=== PATIENT | male | born 1940 | race Caucasian/White ===

== ENCOUNTER → 2018-02-05 10:15 | Day surgery (SDC) | payer MEDICARE ==
[~2018-02-05 10:15] MED LIST: Atropine SYRINGE* 0.1 MG/ML 10 ML SYRINGE (1 MG) ONE; Heparin 2 UNITS/ML IVPREMIX* 2,000 ML IV ONE; Iohexol 350 (CONTRAST) 200 ML MDV IV ONE; Lidocaine 1%* 5 ML VIAL ONE; Midazolam* 1 MG/ML 10 ML VIAL (10 MG) ONE; NS 0.9% 1000 ML* 1,000 ML IV SCH; fentaNYL* 50 MCG/ML 2 ML VIAL (100 MCG VIAL) ONE
[2018-02-05 15:40] VITALS: BP 112/67
--- NOTE | 2018-02-06 02:20 | CATH ---
CC: Dr. Anibal Galindo; Dr. Johnny Osullivan; Dr. Noah Spear, [facility], [facility] * CARDIAC CATHETERIZATION REPORT: DATE OF PROCEDURE: 02/05/18 - [facility] CATH INDICATION FOR THE PROCEDURE: Asked by Dr. Noah Spear to perform diagnostic coronary arteriography and graft arteriography for upcoming TAVR workup. PROCEDURE: Coronary arteriography, vein graft arteriography to diagonal branch, MCFADDEN graft arteriography to the LAD. The patient was interviewed and examined in the holding area in the holding area where the risks and benefits were explained. He understood them and wished to proceed. Precardiac catheterization blood work: Hemoglobin and hematocrit 15.3 and 45 with a platelet count of 123,000. The BUN and creatinine were 18 and 0.9. INR was 1.2. Sodium 139. potassium 4.2 , chloride 105, bicarb 27. EQUIPMENT UTILIZED: 1. Right femoral artery sheath: A 5-[place] DOREEN 11 cm sheath. 2. Diagnostic coronary catheters: A 5-[place] FL4 curved right and a [place] FR4 curved left diagnostic catheter. 3. MCFADDEN graft catheter: A 5-[place] IM diagnostic catheter. HEMOSTASIS TECHNIQUE: Manual compression in light of the patient being evaluated for upcoming TAVR procedure. DESCRIPTION OF PROCEDURE: The patient was interviewed and examined in the holding area where the risks and benefits were explained. He wished to proceed. He was brought to the cardiovascular laboratory where formal time-out was performed. The right femoral artery was cannulated and the introducer was placed. Coronary arteriography was performed utilizing the 5-[place] FL4 and FR4 curved diagnostic catheter. The vein graft to the diagonal branch was cannulated utilizing the right coronary diagnostic catheter. The MCFADDEN graft was cannulated utilizing the 5-[place] MCFADDEN graft catheter. Of note following this, I personally called Dr. Spear to discuss the case with him in light of the finding of the significant lesion in the mid circumflex. It was Dr. Spear' s specific wish not for me to proceed with stenting of that artery at this point. He stated that he would address this issue in their upcoming TAVR scheduled procedure which was tentatively scheduled for next week. As such, the sheath was removed and hemostasis was obtained with local pressure. The total contrast used was 65 cc of Omnipaque dye. The radiation exposure included 7.2 minutes of fluoro time. The air kerma radiation was 643 milligray. The DAP radiation was 4099 microgray/m2. RESULTS: CORONARY ARTERIOGRAPHY: A. Left coronary artery: 1. Left main - widely patent. 2. Left anterior descending artery - a somewhat small caliber initial proximal layer totally occluded in its proximal point. 3. Circumflex artery - a nondominant vessel supplying a thin high first obtuse marginal branch/trifurcation marginal branch followed by a small caliber second obtuse marginal branch and the third obtuse marginal branch had 4 branches off of it a very thin superior branch followed by a significant 80% blockage prior to a trifurcation area supplying 2 moderate size and 1 smaller low lying posterior left ventricular branch. B. Right coronary artery - a dominant vessel supplying the PDA; 1 thin posterior left ventricular branch. There was a mild 25 to 30% mid lesion in the right coronary artery before turning on to the inferior surface of the heart and there was a distal 40 to 45% lesion seen prior to the PDA vessel. VEIN GRAFT ARTERIOGRAPHY TO THE DIAGONAL BRANCH: Widely patent with good anastomosis to a thin caliber diagonal branch with no specific focal critical stenosis seen. MCFADDEN GRAFT ARTERIOGRAPHY TO THE LEFT ANTERIOR DESCENDING ARTERY: Widely patent with good anastomosis with filling of the mid to distal LAD as it wrapped around the apical region. There was a mild 35% narrowing noted in the distal area of this artery just as it reached the apical region. The caliber of the vessel was somewhat small in caliber in mid to distal area. A retrograde filled the short distance up the LAD, but not any significant diagonal branches. Of note interestingly, the MCFADDEN graft itself had a high bifurcation point with a lateral branch to the chest wall. OVERALL ASSESSMENT: Significant [place] coronary artery disease with a totally occluded proximal LAD which was getting blood flow via a widely patent MCFADDEN graft as well as an 80 % lesion in the mid circumflex that led to a trifurcating artery that was not bypassed. Mild/ansm-qz-jtbkthad disease within the mid and distal right coronary artery as above. Patent vein graft to diagonal branch noted. This information as mentioned above was shared immediately during the case with Dr. Spear and the films were sent up to [place] via the internet for his review as well. Dr. Spear will be following up with the patient on timing of the TAVR procedure. [id number]/[facility] #: [id number] [facility]
--- NOTE | 2018-02-06 12:11 | LTR ---
CC: Dr. Anibal Galindo; Dr. Johnny Osullivan at the [facility] CORRESPONDENCE LETTER: DATE OF LETTER: 02/05/18 To: Noah Spear MD [facility]. RE: Dieter Cortes : 36 Dear Noah: This is a letter just to review my recent outpatient cardiac catheterization that I performed at your request on Marilin Shi's patient, Mr. Dieter Cortes. As you remember, you have him scheduled for a TAVR procedure because of his significant aortic stenosis and progressive exertional fatigue and dy spnea. He had undergone an exercise nuclear stress test, during which time he had a significant drop in systolic pressure with exercise, but reportedly had normal LV function and normal perfusion. I d id review the EKG of that procedure and interestingly despite he did not hit target heart rate as he exercised only to 107 beats per minute, he did have significant ST segment depressions that seemed to last throughout the course of the test. The test was converted to a Regadenoson stress test. I performed a cardiac catheterization on him to reassess his bypasses and his [place] coronary anatomy . As per my discussion on the phone from the director of labor and delivery, his MCFADDEN graft was widely patent to the LAD a s was the vein graft to the diagonal. The right coronary artery had vaky-ro-ejoiafuz disease, but th e newest finding was the presence of an 80% lesion in the mid portion of the circumflex. As per my d iscussion with you on the phone, I had called to find out if you wanted me to go ahead and place an i ntracoronary stent at that time, so as to revascularize that area and your decision was not to do at that time. As such, we completed the procedure and he was up and about and eventually sent home on h is current medications with the anticipation of having his TAVR procedure being performed next week. As always if you have any questions regarding him, please feel free to speak with me, and thank you willa concepcion for having asked me to be involved in his care. Sincerely, [id number]/[facility] #: [id number]
== END | disposition home or self-care (01) ==
LOC: CHICATH 10:15
PROVIDERS: ATTEND Internal Medicine Cardiovascular Disease
DX: I35.0 Nonrheumatic aortic (valve) stenosis (principal); I25.10 Atherosclerotic heart disease of native coronary artery without angina pectoris; I49.5 Sick sinus syndrome; E11.8 Type 2 diabetes mellitus with unspecified complications; Z79.84 Long term (current) use of oral hypoglycemic drugs; Z87.891 Personal history of nicotine dependence; Z95.0 Presence of cardiac pacemaker; Z95.1 Presence of aortocoronary bypass graft; I10 Essential (primary) hypertension; E78.5 Hyperlipidemia, unspecified
CPT/HCPCS: 93455; C1887; J0461; J1644; J2250; J3010

== ENCOUNTER 2018-02-15 10:34 | Emergency (ER) | payer MEDICARE ==
--- NOTE | 2018-02-15 11:48 | ED ---
Complex/Multi-Sys Presentation - HPI Summary HPI Summary: This is xeniaibe Vianey Landa documenting for attending Concepcion Platt MD This patient is a 77 year old M presenting to [facility] accompanied by his Lisa with a chief complaint of a lump in the right groin area at the location of bilateral PCI placement on 02/12/18 at [facility], where he had a stent and valve replacement (TAVR). Patient noticed the lump this morning, and was instructed by Dr. Osullivan to come to the ED due to its size. Pain is 3/10 in severity, upon triage. Patient denies drainage of blood or pus, lower extremity pain, urinary symptoms, headache, dizziness, CP, SOB, and fever I, Dr. Platt ,personally performed the services described in this documentation as scribed in my presence and it is both accurate and complete - History Of Current Complaint Chief Complaint: EDGeneral Hx Obtained From: Patient Onset/Duration: Gradual Onset, Lasting Hours Timing: Constant Severity Currently: Mild Severity Initially: Mild Location: Pain At: - right groin Character: Pressure - "lump" Aggravating Factor(s): nothing Alleviating Factor(s): nothing Associated Signs And Symptoms: Negative: Dizziness, Headache, SOB, Chest Pain, Dysuria, Fever Related History: Recent Hospitalization - cardiac cath bilat, cath x 2 on the right within a few days. - Allergies/Home Medications Allergies/Adverse Reactions: Allergies Allergy/AdvReac Type Severity Reaction Status Date / Time simvastatin Allergy Diarrhea Verified 02/15/18 10:52 PMH/Surg Hx/FS Hx/Imm Hx Endocrine/Hematology History: Reports: Hx Diabetes Cardiovascular History: Reports: Hx Angina, Hx Coronary Artery Disease, Hx Hypercholesterolemia, Hx Hypertension Respiratory History: Reports: Hx Pneumonia - Surgical History Surgery Procedure, Year, and Place: stent and valve replacement[facility] Infectious Disease History: No Infectious Disease History: Denies: Traveled Outside the [place] in Last 30 Days - Family History Known Family History: Positive: Other - father - ALS - Social History Occupation: Retired Lives: With Family Alcohol Use: Daily Alcohol Amount: 1 beer with supper Substance Use Type: Reports: None Smoking Status (MU): Never Smoked Tobacco Have You Smoked in the Last Year: No Review of Systems Negative: Fever Negative: Chest Pain Negative: Shortness Of Breath Genitourinary: Other - lump to R groin Positive: no symptoms reported Negative: Myalgia Positive: Bruising - bilateral groins Neurological: Negative - dizziness Negative: Headache Psychological: Normal All Other Systems Reviewed And Are Negative: Yes Physical Exam - Summary Physical Exam Summary: Appearance: Well-appearing, minimal pain distress on palpation of right groin, well-nourished Skin: Warm, color reflects adequate perfusion, dry; purple and green ecchymosis bilateral groin; right groin with palpable 3cm induration; L groin palpable 1cm induration Head: Normal Head/Face inspection, atraumatic Eyes: Conjunctiva clear ENT: Normal inspection Neck: Supple, no nodes, no JVD Respiratory: Lungs clear, normal breath sounds, no respiratory distress Cardio: RRR, No murmur, pulses normal, brisk capillary refill Abdomen: Soft, nontender Bowel sounds: Present Musculoskeletal: femoral and distal pulses intact bilaterally, Strength Intact/ ROM intact, no calf tenderness, no edema. Psychological: Normal Neuro: Alert, muscle tone normal, no focal deficit Triage Information Reviewed: Yes Vital Signs On Initial Exam: Initial Vitals Temp Pulse Resp BP Pulse Ox 96.4 F 94 14 126/59 100 02/15/18 10:52 02/15/18 10:52 02/15/18 10:52 02/15/18 10:52 02/15/18 10:52 Vital Signs Reviewed: Yes Diagnostics - Vital Signs Vital Signs Temp Pulse Resp BP Pulse Ox 02/15/18 10:52 96.4 F 94 14 126/59 100 - Laboratory Result Diagrams: 02/15/18 12:07 02/15/18 12:07 Lab Statement: Any lab studies that have been ordered have been reviewed, and results considered in the medical decision making process. - Additional Comments Diagnostic Additional Comments: Groin Doppler US reveals, as per radiologist: 1. NO EVIDENCE FOR PSEUDOANEURYSM. 2. SMALL HEMATOMA. ED Physician has reviewed this report. Re-Evaluation - Re-Evaluation First Re-Evaluation Time: 13:15 Change: Unchanged Comment: Informed patient of US results. Second Re-Evaluation Time: 13:50 Change: Unchanged Comment: Evaluated patient with Dr. Osullivan. Complex Multi-Symp Course/Dx Course Of Treatment: 77 y/o M presents c/o a "lump" to the right groin area, at the location of a previous cardiac catheterization performed on 02/12/18. Patient states he was instructed by Dr. sOullivan to come to the ED if this size worsenes. An US reveals: "1. NO EVIDENCE FOR PSEUDOANEURYSM. 2. SMALL HEMATOMA." Bloodwork is unremarkable. At 11:53, Dr. Osullivan recommends getting an US to rule out a pseduoanuerysm and to check blood count to make sure he is not bleeding. At 13:20 Dr. Osullivan agrees to come see patient in the ED. I evaluated the patient with Dr. Osullivan, who agrees the patient can be discharged. Patient and are agreeable. - Diagnoses Provider Diagnoses: Status post cardiac catheterization, Hematoma of groin - Physician Notifications Discussed Care Of Patient With: Johnny Osullivan - cardiology Time Discussed With Above Provider: 11:53 Instructed by Provider To: Other - Recommends getting an US to rule of pseduoanuerysm and to check blood count to make sure he is not bleeding. at 13: 20 Dr. Osullivan agrees to come see patient in the ED. Discharge - Sign-Out/Discharge Documenting (check all that apply): Patient Departure - Discharge Plan Condition: Stable Disposition: HOME Patient Education Materials: Hematoma (ED) Referrals: Anibal Galindo MD [Primary Care Provider] - Johnny Osullivan MD [Medical Doctor] - (as scheduled 02/27/18) Additional Instructions: You have a small hematoma in your right groin at the site of your cardiac catheterization. You do not have a pseudoaneurysm. Your blood count did not drop. Your clotting times are normal. Dr. Osullivan saw you while you were in the ER. Keep your scheduled appointment with Dr. Osullivan. Return to the ER if any new or worsening symptoms. - Billing Disposition and Condition Condition: STABLE Disposition: Home
[2018-02-15 12:37] LABS: Hematocrit 41 % (42-52); Hemoglobin 13.8 g/dl (14.0-18.0); Mean Corpuscular HGB Conc 34 g/dl (31-36); Mean Corpuscular Hemoglobin 30 pg (27-31); Mean Corpuscular Volume 88 fL (80-94); Red Blood Count 4.65 10^6/ul (4.00-5.40); Red Cell Distribution Width 13 % (10.5-15); White Blood Count 5.9 10^3/ul (3.5-10.8)
[2018-02-15 12:38] LABS: INR 1.36 (0.77-1.02)
--- NOTE | 2018-02-15 12:45 | RAD ---
INDICATION: Status post cardiac catheterization right inguinal swelling. COMPARISON: There are no prior studies available for comparison. TECHNIQUE: Multiple real-time, color flow and Doppler tracings of the right inguinal region were obtained. FINDINGS: The common femoral is patent. There is a small hypoechoic area in the soft tissues most consistent with a small hematoma present at the puncture site measuring 1.0 x 0.7 x 0.9 cm. There is normal flow within the common and proximal femoral arteries. No pseudoaneurysm is seen. Moderate atherosclerotic plaque is noted within the common and proximal femoral arteries. There is triphasic flow present in both arteries. IMPRESSION: 1. NO EVIDENCE FOR PSEUDOANEURYSM. 2. SMALL HEMATOMA.
[2018-02-15 12:48] LABS: EGFR Non-African American 93.3 (>60)
[2018-02-15 12:59] LABS: ABS Basophils 0 10^3/ul (0-0.2); ABS Eosinophils 0.1 10^3/ul (0-0.6); ABS Lymphocytes 0.8 10^3/ul (1.0-4.8); ABS Monocytes 0.6 10^3/ul (0-0.8); ABS Neutrophils 4.3 10^3/ul (1.5-7.7); ABS Nucleated RBC 0 10^3/ul; Eosinophil % 2.5 % (0-6); Lymphocyte % 13.9 % (25-47); Mean Platelet Volume 8.7 um3 (7.4-10.4); Nucleated Red Blood Cells % 0.2; Platelet Count 76 10^3/ul (150-450)
[2018-02-15 14:18] VITALS: BP 130/77
--- NOTE | 2018-02-15 17:37 | CONS ---
OUTPATIENT EVALUATION: DATE OF EVALUATION: 02/15/18 HISTORY OF PRESENT ILLNESS: This is a very pleasant 77-year-old gentleman with a history of coronary artery disease, aortic stenosis, tachybrady arrhythmias with a pacemaker who recently underwent TAVR for aortic stenosis and PCI for an angioplastied lesion last week. He called to report that he was having some swelling at the groin side, which he did not notice yesterday. He has bruising but no expansion since this am; he said it was dime size. He was told to come to ER if he had concerns of worsening. He came to the ER and I was asked to see him by Dr. Anna Platt. He denies any fevers, chills, sweats, orthopnea and no shortness of breath. He has been able to get around the house and walk short distances. PHYSICAL EXAMINATION: On physical exam, he is a well-developed, well-nourished gentleman, in no apparent distress. Blood pressure 137/72, pulse is 76. Both groins were bruised. There was a small nodule in the right groin about 1 cm. Distal pulses were intact. DIAGNOSTIC STUDIES/LABORATORY DATA: His labs revealed a hematocrit of 41, which is down from 45; hemoglobin of 13.8. Sodium 141, potassium of 4, BUN of 22, creatinine of 0.8. CRP of 29. He had an ultrasound of his groin, which revealed no evidence for pseudoaneurysm , small hematoma measuring 1 x 0.7 x 0.9 cm. IMPRESSION: My impression is that Mr. Cortes appears to have a small hematoma above his arterial puncture site status post transcatheter aortic valve replacement and percutaneous coronary intervention. It appears to be stable. I did explain to him and his that he may expect the bruising to persist and actually migrate down his legs. I asked him to carefully measure the nodule and report any unexplained expansion of it, which would dictate the need for repeat evaluation and perhaps applying pressure for possible hemorrhage. He is to avoid vigorous exertion and lifting/stretching ; he was told to take it easy for at least a week. He has followup later this month for repeat evaluation. greater than 25 min were spent face to face and coordinating care [id number]/[facility] #: [id number] [facility] CENTERJuarez
== END 2018-02-15 14:16 | disposition home or self-care (01) ==
LOC: ED 10:34
DX: Z95.4 Presence of other heart-valve replacement (principal); S30.1XXA Contusion of abdominal wall, initial encounter; I25.10 Atherosclerotic heart disease of native coronary artery without angina pectoris; I10 Essential (primary) hypertension; E11.9 Type 2 diabetes mellitus without complications
CPT/HCPCS: 36415; 80053; 85025; 85060; 85610; 86140; 99282

== ENCOUNTER 2021-10-12 12:09 | Inpatient (IN) ==
[~2021-10-12 12:09] MED LIST changes: -Atropine SYRINGE* 0.1 MG/ML 10 ML SYRINGE (1 MG) ONE; +Buffered Lidocaine 1% SYRIN 1 ml INTRADERM ONE; -Heparin 2 UNITS/ML IVPREMIX* 2,000 ML IV ONE; -Iohexol 350 (CONTRAST) 200 ML MDV IV ONE; +Lactated Ringers 1000 ml BAG 1,000 ML IV SCH; -Lidocaine 1%* 5 ML VIAL ONE; +Midazolam 2 mg/2 ml VIAL 1 mg/ml 2 ml VIAL (2 mg) ONE; -Midazolam* 1 MG/ML 10 ML VIAL (10 MG) ONE; -NS 0.9% 1000 ML* 1,000 ML IV SCH; +fentaNYL 100 mcg/2 ml 50 MCG/ML VIAL ONE; -fentaNYL* 50 MCG/ML 2 ML VIAL (100 MCG VIAL) ONE
[2021-10-12] MEDS ORDERED: ceFAZolin 2 GM PREMIX 2 GM/50 ML BAG ONE (12:31)
[2021-10-12] MEDS ORDERED: Rocuronium 50 mg VIAL 10 mg/ml 5 ml VIAL (50 mg) ONE ×2 (13:56→16:08)
[2021-10-12] MEDS ORDERED: Lidocaine 2% PF 5 ML VIAL ONE (13:56)
[2021-10-12] MEDS ORDERED: Propofol 10 MG/ML 20 ML BTL ONE ×4 (13:56→16:05)
[2021-10-12] MEDS ORDERED: ROPIVACAINE 5 MG/ML 30 ML BTL (0.5%) ONE (14:47)
[2021-10-12] MEDS ORDERED: HYDROmorphone 0.5 MG/0.5 ML SYRINGE ONE ×2 (15:18→15:46)
[2021-10-12] MEDS ORDERED: Acetaminophen IV 1 GM/100ML 100 ML IV ONE ×2 (15:18→15:45)
[2021-10-12] MEDS ORDERED: DiMENhydriNATE IV 50 mg/ml 1 ml VIAL IV PUSH PRN (15:30)
[2021-10-12] MEDS ORDERED: Ondansetron 4 mg VIAL 2 MG/ML 2 ml VIAL IV PRN ×2 (15:30→15:59)
[2021-10-12] MEDS ORDERED: Naloxone 0.4 mg VIAL 0.4 mg/ml 1 ml VIAL IV PRN (15:30)
[2021-10-12] MEDS ORDERED: diPHENhydraMINE IV 50 MG/ML 1 ml VIAL (BENADRYL) IV PRN ×2 (15:30→15:59)
[2021-10-12] MEDS ORDERED: HYDROmorphone 1 MG/1 ML SYRINGE IV PRN (15:30)
[2021-10-12] MEDS ORDERED: Ondansetron 4 mg VIAL 2 MG/ML 2 ml VIAL ONE (15:45)
[2021-10-12] MEDS ORDERED: Dexamethasone IV 4 MG/ML VIAL 1 ml VIAL ONE (15:45)
[2021-10-12] MEDS ORDERED: Morphine 2 MG/ML SYRINGE IV PRN (15:59)
[2021-10-12] MEDS ORDERED: Lactulose 30 ml UDC PO PRN (15:59)
[2021-10-12] MEDS ORDERED: diPHENhydraMINE 25 mg TAB PO PRN (15:59)
[2021-10-12] MEDS ORDERED: Magnesium Hydroxide LIQ 30 ML UDC PO PRN (15:59)
[2021-10-12] MEDS ORDERED: Ondansetron ODT 4 mg TAB 4 MG TAB PO PRN (15:59)
[2021-10-12] MEDS ORDERED: ceFAZolin 1 GM ADVAN 1 GM in NS 0.9% 50 ML 50 ML IVPB SCH (16:00)
[2021-10-12] MEDS: Lactated Ringers 1000 ml BAG 1,000 ML IV SCH (19:59)
[2021-10-12] MEDS: Magnesium Hydroxide LIQ 30 ML UDC PO SCH (20:22)
[2021-10-12] MEDS: ceFAZolin 1 GM in Dextrose 1 GM/50 ML BAG IVPB SCH (22:39)
[2021-10-12] MEDS ORDERED: ceFAZolin VIAL 1 GM in NS 0.9% 50 ML 50 ML IVPB SCH (23:00)
[2021-10-13] MEDS: Lactated Ringers 1000 ml BAG 1,000 ML IV SCH (06:27)
[2021-10-13] MEDS: ceFAZolin 1 GM in Dextrose 1 GM/50 ML BAG IVPB SCH ×2 (06:27→15:17)
[2021-10-13 06:51] LABS: Hematocrit 39 % (42-52); Hemoglobin 13.4 g/dL (14.0-18.0); Platelet Count 88 10^3/uL (150-450)
[2021-10-13 07:06] LABS: Calcium 8.7 mg/dL (8.6-10.3); Potassium 4.9 mmol/L (3.5-5.0)
[2021-10-13] MEDS: Magnesium Hydroxide LIQ 30 ML UDC PO SCH (07:58)
[2021-10-13] MEDS ORDERED: Vitamin THERAPEUTIC TAB PO SCH (09:00)
[2021-10-13 11:33] VITALS: BP 106/53
== END 2021-10-13 15:55 | disposition home or self-care (01) | DRG 470 ==
LOC: OR 12:09 → SSU 12:09
PROVIDERS: ADMIT Orthopaedic Surgery Adult Reconstructive Orthopaedic Surgery; ATTEND Orthopaedic Surgery Adult Reconstructive Orthopaedic Surgery

== ENCOUNTER 2023-10-16 08:14 | Inpatient (IN) ==
[2023-10-16] MEDS ORDERED: fentaNYL 100 mcg/2 ml 50 MCG/ML VIAL ONE ×2 (09:13→13:58)
[2023-10-16] MEDS ORDERED: Lidocaine 2% PF 5 ML VIAL ONE (09:14)
[2023-10-16] MEDS ORDERED: Propofol 10 MG/ML 20 ML BTL ONE (09:14)
[2023-10-16] MEDS ORDERED: Famotidine IV 10 MG/ML 2 ml VIAL (20 mg) ONE (09:16)
[2023-10-16] MEDS ORDERED: Tranexamic Acid 1 GM/100ML BAG 2,000 MG/200 ML BAG IV ONE (09:16)
[2023-10-16] MEDS ORDERED: ceFAZolin 2 GM PREMIX 2 GM/50 ML BAG ONE ×2 (09:16→10:12)
[2023-10-16 09:21] LABS: Rapid COVID-19 Molecular Undetected (Undetected)
[2023-10-16] MEDS: Lactated Ringers 1000 ml BAG 1,000 ML IV SCH ×2 (09:39→15:45)
[2023-10-16] MEDS: Famotidine IV 10 MG/ML 2 ml VIAL (20 mg) IV ONE (09:39)
[2023-10-16] MEDS ORDERED: ROPIVACAINE 5 MG/ML 30 ML BTL (0.5%) ONE (10:00)
[2023-10-16] MEDS ORDERED: Rocuronium 50 mg VIAL 10 mg/ml 5 ml VIAL (50 mg) ONE ×2 (10:30→11:49)
[2023-10-16] MEDS ORDERED: Naloxone 0.4 mg VIAL 0.4 mg/ml 1 ml VIAL IV PRN (11:18)
[2023-10-16] MEDS ORDERED: HYDROmorphone 1 MG/1 ML SYRINGE IV PRN (11:18)
[2023-10-16] MEDS ORDERED: HYDROmorphone 0.5 MG/0.5 ML SYRINGE ONE (11:30)
[2023-10-16] MEDS ORDERED: Ondansetron 4 mg VIAL 2 MG/ML 2 ml VIAL ONE (11:32)
[2023-10-16] MEDS ORDERED: Dexamethasone IV 4 MG/ML VIAL 1 ml VIAL ONE (11:32)
[2023-10-16] MEDS ORDERED: Morphine 2 MG/ML SYRINGE IV PRN (13:38)
[2023-10-16] MEDS ORDERED: Magnesium Hydroxide LIQ 30 ML UDC PO PRN (13:38)
[2023-10-16] MEDS ORDERED: Ondansetron 4 mg VIAL 2 MG/ML 2 ml VIAL IV PRN (13:38)
[2023-10-16] MEDS ORDERED: Ondansetron ODT 4 mg TAB 4 MG TAB PO PRN (13:38)
[2023-10-16] MEDS ORDERED: Lactulose 30 ml UDC PO PRN (13:38)
[2023-10-16] MEDS: fentaNYL 100 mcg/2 ml 50 MCG/ML VIAL IV PRN (14:02)
[2023-10-16] MEDS: Magnesium Hydroxide LIQ 30 ML UDC PO SCH (20:19)
[2023-10-16] MEDS: ceFAZolin 1 GM ADVAN 1 GM in NS 0.9% 50 ML 50 ML IVPB SCH (20:24)
[2023-10-16] MEDS: Buffered Lidocaine 1% SYRIN 1 ml INTRADERM ONE (21:58)
[2023-10-17 07:54] LABS: Hematocrit 38.1 % (38-53); Hemoglobin 12.8 g/dL (13.2-16.3); Mean Platelet Volume 9.4 fL (7.5-11.2); Platelet Count 86 10^3/uL (150-450)
[2023-10-17 08:03] LABS: Creatinine, Serum 0.89 mg/dL (0.67-1.17); Potassium 4.8 mmol/L (3.5-5.0)
[2023-10-17] MEDS: Vitamin THERAPEUTIC TAB PO SCH (08:07)
[2023-10-17 10:26] VITALS: BP 116/54
== END 2023-10-17 13:00 | disposition home or self-care (01) | DRG 470 ==
LOC: AA → INTOOBSV 08:14 → AA 08:14 → SSU 15:11
PROVIDERS: ADMIT Orthopaedic Surgery Adult Reconstructive Orthopaedic Surgery; ATTEND Orthopaedic Surgery Adult Reconstructive Orthopaedic Surgery